=== PATIENT | male | born 1995 | race Caucasian/White ===

== ENCOUNTER 2019-03-07 11:54 | Outpatient (CLI) | payer BC, SELFPAY ==
[2019-03-10 10:53] LABS: Hepatitis A IgM Ab Negative (Negative)
[2019-03-10 12:22] LABS: HIV-1/2 Ag & Ab Screen Negative (NEGAT)
[2019-03-10 12:28] LABS: HBs Antibody, Qual Negative; HBs Antibody, Quant <3.1 mIU/mL; Hepatitis B Core Antibody Negative (NEGAT); Hepatitis B surface Ag Negative (NEGAT); Hepatitis C Ab w Rflx HCV PCR Negative (NEGAT)
== END 2019-03-07 12:14 ==
PROVIDERS: PCP Family Medicine; Visit Provider Emergency Medicine
DX: Z11.3 Encounter for screening for infections with a predominantly sexual mode of transmission; Z11.4 Encounter for screening for human immunodeficiency virus [HIV]; Z11.59 Encounter for screening for other viral diseases
CPT/HCPCS: 36415; 86704; 86706; 86709; 86803; 87340; 87389

== ENCOUNTER 2021-05-04 19:44 | Outpatient (REF) | payer BC, SELFPAY | END 2021-05-04 19:45 | disposition home or self-care (01) | LOC: LBN 19:44 | PROVIDERS: PCP Family Medicine; Visit Provider Physician Assistant Medical | DX: L98.8 Other specified disorders of the skin and subcutaneous tissue (principal) | CPT/HCPCS: 87077; 87070; 87186; 87205 ==

== ENCOUNTER 2021-07-12 09:49 | Emergency (ER) | payer MEDICAID, SELFPAY ==
[2021-07-12 09:54] VITALS: BP 138/89; PULSE 59; RESP 20; TEMP 37.2; O2SAT 100
--- NOTE | 2021-07-12 10:00 | DI.CT_ITS ---
Exam(s) CT HEAD FACIAL WO EXAM: CT HEAD FACIAL WO CLINICAL HISTORY: Trauma, R/O Fracture. TECHNIQUE: Imaging Protocol: Axial computed tomography images with coronal and sagittal reformatted images were created and reviewed COMPARISON: CT HEAD WITHOUT CONTRAST from 07/25/2010 FINDINGS: CT Head: Ventricles and Extra axial spaces: Normal in size and morphology for the patient's age. Hemorrhage: None. Cerebral parenchyma: Normal. Midline shift: None. Brainstem/Cerebellum: Normal. Calvarium: Normal. Visualized Paranasal sinuses/Mastoids: Clear. Soft Tissues: Unremarkable. CT Face: Facial Bones: Fracture of the left zygomatic arch in 2 places with some medial displacement. No juan tional facial fractures. Slight motion at the level of the nose. No displaced nasal fracture. Sinuses and Mastoids: Unremarkable. Globes, extraocular muscles, optic nerves and retrobulbar fat: Normal. Upper aerodigestive tract: Normal. Mandible and bilateral temporomandibular joints: Normal. Soft tissues: Laceration left frontal region. Soft tissue swelling around the left orbit and left zy goma.. IMPRESSION: 1. Normal head CT. 2. Zygomatic fractures with mild depression. No orbital fracture.. RADIATION DOSE DELIVERED: 1,161.22mGy.cm Total DLP DATA REPOSITORY: All CT scans at this facility are submitted to the National Radiology Data Registry (NRDR) Dose Index Registry (DIR) with the [employer] ([employer]). RADIATION OPTIMIZATION: All CT scans at this facility use at least one of these dose optimization te chniques: automated exposure control; mA and/or kV adjustment per patient size (includes targeted exa ms where dose is matched to clinical indication); or iterative reconstruction.
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
[2021-07-12] MEDS: Ibuprofen 600 MG TAB PO (10:19)
[2021-07-12] MEDS: Lidocaine/Epinephri/Tetracaine Topical Gel 3 ML TP (10:20)
[2021-07-12] MEDS: Methadone Liquid 10 MG/ML 60 MG PO (10:23)
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
[2021-07-12 11:02] VITALS: BP 121/76; PULSE 59; RESP 20; TEMP 36.8; O2SAT 99
== END 2021-07-12 12:02 | disposition home or self-care (01) ==
PROVIDERS: Emergency Provider Registered Nurse Emergency; PCP Family Medicine
DX: S02.40FA Zygomatic fracture, left side, initial encounter for closed fracture (principal); S01.01XA Laceration without foreign body of scalp, initial encounter; S00.11XA Contusion of right eyelid and periocular area, initial encounter; S00.12XA Contusion of left eyelid and periocular area, initial encounter; Y04.0XXA Assault by unarmed brawl or fight, initial encounter; M25.562 Pain in left knee; W17.89XA Other fall from one level to another, initial encounter
CPT/HCPCS: 12001; 73562; 90471; 99281; 70450; 70486

== ENCOUNTER 2021-07-18 08:15 | Emergency (ER) | payer MEDICAID, SELFPAY ==
[2021-07-18 08:36] VITALS: BP 124/81; PULSE 63; RESP 16; TEMP 36.3; O2SAT 98
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
== END 2021-07-18 08:49 | disposition home or self-care (01) ==
PROVIDERS: Emergency Provider Registered Nurse Emergency; PCP Family Medicine
DX: S01.01XD Laceration without foreign body of scalp, subsequent encounter (principal); X58.XXXD Exposure to other specified factors, subsequent encounter; Z48.02 Encounter for removal of sutures